=== PATIENT | female | born 2000 | race Caucasian/White ===

== ENCOUNTER 2018-01-17 01:16 | Emergency (ER) | payer OTHER ==
[~2018-01-17] VITALS: Ht 157.5 cm; Wt 45.0 kg
[2018-01-17 01:25] VITALS: BP 110/70; PULSE 80; RESP 16; TEMP 98.7; O2SAT 98
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
[2018-01-17] MEDS ORDERED: ORPHENADRINE INJ 60 MG/2 ML AMP IM ONE (01:45)
[2018-01-17] MEDS ORDERED: KETOROLAC TROMETHAMINE 60 MG/2 ML (IM) VIAL IM ONE (01:45)
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
[2018-01-17] MEDS ORDERED: BACL10TA PO (04:20)
[2018-01-17] MEDS ORDERED: DICL75TA PO (04:20)
[2018-01-17] MEDS ORDERED: IBUPROFEN 800 MG TAB PO ONE (04:30)
== END 2018-01-17 04:34 | disposition home or self-care (01) ==
LOC: NEPD 01:16
DX: S16.1XXA Strain of muscle, fascia and tendon at neck level, initial encounter (principal); S20.219A Contusion of unspecified front wall of thorax, initial encounter; S46.912A Strain of unspecified muscle, fascia and tendon at shoulder and upper arm level, left arm, initial encounter; V89.2XXA Person injured in unspecified motor-vehicle accident, traffic, initial encounter
CPT/HCPCS: 71045; 72100; 72125; 73030; 84703